=== PATIENT | male | born 1960 | race Caucasian/White ===

== ENCOUNTER 2022-05-03 09:01 | Outpatient (CLI) | payer OTHER, SELFPAY ==
--- NOTE | 2022-05-03 09:28 | XR_ITS ---
WS: [id number] Exam: XR knee LT 3V* [id number] Date/Time of Exam: 05/03/2022 9:45 AM Reason For Exam: L KNEE PAIN No acute fracture or dislocation. Moderately advanced degenerative thinning of the medial joint angela rtment. Minimal effusion in the suprapatellar bursa. Spurring of the posterior patella. XR/XR knee LT 3V* [id number] IMPRESSION: 1. Moderate degenerative narrowing of the medial joint compartment. Minimal donald nt effusion. 2. No fracture.
== END 2022-05-03 09:02 | disposition home or self-care (01) ==
LOC: RAD 09:05
PROVIDERS: PCP Nurse Practitioner Family; Visit Provider Family Medicine
DX: M25.562 Pain in left knee (principal); M25.462 Effusion, left knee
CPT/HCPCS: 73562

== ENCOUNTER 2022-05-19 16:18 | Outpatient (CLI) | payer OTHER, SELFPAY ==
--- NOTE | 2022-05-19 | CT_ITS ---
WS: [id number] LDCT LUNG CANCER SCREENING HISTORY: NICOTINE DEPENDENCE TECHNIQUE: Axial imaging performed from the apices to 1 cm below the costophrenic angles. Coronal and sagittal reformats are submitted with axial MIP series. All CT scans at [facility] use at least one of these dose optimization techniques: automated exposure control; mA and/or kV adjustment per patient size (includes targeted exams where dose is matched to clinical indication); or iterativ e reconstruction. DLP: 76.77 mGy.cm DIvol: Mean CTDIvol: 1.60 (mGy) COMPARISON: None available. Diagnostic quality: Satisfactory Lung Nodules: 7 mm noncalcified parenchymal nodule in the RIGHT middle lobe. No calcification. Additi onal areas of subsegmental atelectasis with adjacent groundglass attenuation bilaterally in the lower lobes and in the lingula. Lungs: Mild pulmonary hyperexpansion. Mild bronchial wall thickening bilaterally the lower lobes. Heart: Normal size heart. No effusion. Mild scattered coronary artery calcifications. Other findings: No suspicious lymph nodes. Small axillary, hilar mediastinal lymph nodes. Some of the se lymph nodes contain calcification. Seen only on the axial imaging through the upper abdomen is a b ulbous appearance of the pancreatic tail. No adjacent inflammation. Similar density to the adjacent n ormal pancreas. CT/CT lung screening [id number] IMPRESSION: LUNG-RADS: 4A-Probably Suspicious FOLLOW UP: 3 Month LDCT OTHER FINDINGS (S MODIFIER): Recommend CT abdomen and pelvis with IV and oral c ontrast to evaluate for possible mass involving the pancreatic tail. Dual phase (arterial and portal venous) imaging through the pancreas recommended.
== END 2022-05-19 16:19 | disposition home or self-care (01) ==
PROVIDERS: PCP Nurse Practitioner Family; Visit Provider Family Medicine
DX: Z12.2 Encounter for screening for malignant neoplasm of respiratory organs (principal); F17.210 Nicotine dependence, cigarettes, uncomplicated
CPT/HCPCS: 71271

== ENCOUNTER 2022-06-14 11:12 | Outpatient (CLI) | payer OTHER, SELFPAY ==
--- NOTE | 2022-06-14 11:27 | CT_ITS ---
WS: [id number] CT ABDOMEN AND PELVIS WITH AND WITHOUT CONTRAST HISTORY: ABNORMAL RADIOGRAPHIC IMAGING OF PANCREAS TECHNIQUE: Unenhanced 5 mm axial imaging first performed through the abdomen. Post contrast imaging t hrough the abdomen and pelvis. Oral contrast has not been provided. Sagittal and coronal reformats a re submitted. All CT scans at [facility] use at least one of these dose optimization techniqu es: automated exposure control; mA and/or kV adjustment per patient size (includes targeted exams whe re dose is matched to clinical indication); or iterative reconstruction. CONTRAST: Omnipaque 350; 95 mL IV. DLP: 3608.79 mGy.cm COMPARISON: 05/22/2016, 05/19/2022 Atelectatic and dependent changes at the lung bases. No pneumonia. Heart is normal size. No hiatal he rnia. Normal size liver with hepatic steatosis. Blush-like area of enhancement in the LEFT lobe measures 2. 3 cm consistent with a hemangioma. Normal portal vein. Normal gallbladder and spleen. Normal adrenal glands. Kidneys are normally enhancing. Bilateral lower pole low-attenuation masses. The largest in t he LEFT lower pole measures 3.6 cm. There is a smaller cortical hypodensity at lower pole RIGHT kidne y. Both of these were present in 2016. No solid renal mass or obstruction. Pancreas: There is a normal appearance of the pancreas. The bulbous appearance of the pancreatic tail on the prior recent examination corresponds to a mildly redundant pancreas. Similar enhancement thro ughout. There is no evidence for a pancreatic tail mass or neoplasm. Normal pancreatic duct. Mild atherosclerosis aorta. No GI tract abnormality. No ascites or adenopathy. Patent LEFT inguinal c anal contains fat only. Minimally distended urinary bladder. Mild degenerative spondylitic changes in the lumbar spine. CT/CT abdomen pelvis wo/w [id number] IMPRESSION: 1. Normal CT pancreas. Previously described fullness in the pancreatic tail wa s redundant normal pancreatic tissue. 2. Bilateral lower pole stable renal cysts. 3. LEFT hepatic lobe hemangioma. 4. Hepatic steatosis. 5. Mild atherosclerosis aorta.
[2022-06-14] MEDS: iohexol 350 mg/mL 100 mL Btl IV (11:49)
== END 2022-06-14 11:13 | disposition home or self-care (01) ==
PROVIDERS: PCP Nurse Practitioner Family; Visit Provider Family Medicine
DX: R93.89 Abnormal findings on diagnostic imaging of other specified body structures (principal); Q61.02 Congenital multiple renal cysts; N28.89 Other specified disorders of kidney and ureter; D18.09 Hemangioma of other sites; I70.0 Atherosclerosis of aorta
CPT/HCPCS: 74178; Q9967

== ENCOUNTER 2022-07-25 16:28 | Outpatient (CLI) | payer OTHER, SELFPAY ==
--- NOTE | 2022-07-25 16:36 | CT_ITS ---
WS: [id number] CT CHEST WITHOUT INTRAVENOUS CONTRAST HISTORY: SOLITARY NODULE OF LUNG TECHNIQUE: Contiguous 5 mm axial imaging performed on the thorax. Coronal and sagittal reformats are submitted. All CT scans at [facility] use at least one of these dose optimization techniques: automated exposure control; mA and/or kV adjustment per patient size (includes targeted exams where dose is matched to clinical indication); or iterative reconstruction. CONTRAST: None DLP: 705.49 mGy.cm COMPARISON: 07/19/2014 Lungs and central airway: No increase in size of the noncalcified RIGHT middle lobe 7 mm pulmonary no dule. There are additional scattered benign granulomata. Additional dependent changes at the lung bas es and lingula. No area of dense consolidation. Pleura: Normal. No pleural effusion. Heart and pericardium: Normal size heart with no pericardial effusion. Mediastinum and jm: No enlarged lymph nodes. Vessels: Atherosclerosis aorta is mild. Pulmonary artery size is very mildly prominent. Chest wall and lower neck: No soft tissue masses. Upper abdomen: Diffuse hepatic steatosis. No adrenal mass. Osseous structures: Stable lytic area with cortical thickening involving the inferior LEFT ribs. Xiomara lar to the prior study. May be related to fracture. CT/CT chest wo con [id number] IMPRESSION: 1. No increase in size of the 7 mm noncalcified RIGHT middle lobe nodule. Sanju mmend follow-up chest CT in 6 months to document continued stability. 2. Atherosclerosis aorta. 3. Hepatic steatosis.
== END 2022-07-25 16:29 | disposition home or self-care (01) ==
PROVIDERS: PCP Nurse Practitioner Family; Visit Provider Nurse Practitioner Family
DX: R91.1 Solitary pulmonary nodule (principal); I70.0 Atherosclerosis of aorta; K76.0 Fatty (change of) liver, not elsewhere classified
CPT/HCPCS: 71250

== ENCOUNTER 2023-05-15 16:51 | Outpatient (CLI) | payer SELFPAY ==
--- NOTE | 2023-05-15 17:08 | XRR_ITS ---
PROCEDURE INFORMATION: Exam: XR Chest Exam date and time: 05/15/2023 5:10 PM Age: 63 years old Clinical indication: Wheezing TECHNIQUE: Imaging protocol: Radiologic exam of the chest. Views: 2 views. COMPARISON: CT chest con [id number] 07/25/2022 4:43 PM FINDINGS: Lungs: Unremarkable. No consolidation. Pleural spaces: Unremarkable. No pleural effusion. No pneumothorax. Heart/Mediastinum: Unremarkable. No cardiomegaly. Bones/joints: Unremarkable. XR/XR chest 2V* [id number] IMPRESSION: No acute findings.
== END 2023-05-15 16:52 | disposition home or self-care (01) ==
LOC: RAD 16:57
PROVIDERS: PCP Nurse Practitioner Family; Visit Provider Nurse Practitioner Family
DX: R06.2 Wheezing (principal); R05.1 Acute cough
CPT/HCPCS: 71046

== ENCOUNTER 2023-09-27 16:47 | Outpatient (CLI) | payer OTHER, SELFPAY ==
--- NOTE | 2023-09-27 16:50 | CT_ITS ---
WS: [email or web address] LDCT LUNG CANCER SCREENING TECHNIQUE: Noncontrast CT of the chest with coronal and sagittal reformatted images. CLINICAL INFORMATION: NICOTINE DEPENDENCE, CIGARETTES COMPARISON: CT 07/27 and 05/27 DLP: 97.49 mGy.cm DIvol: Mean CTDIvol: 2.30 (mGy) All CT scans at [facility] use at least one of these dose optimization techniques: automat ed exposure control; mA and/or kV adjustment per patient size (includes targeted exams where dose is matched to clinical indication); or iterative reconstruction. FINDINGS: RIGHT middle lobe nodule measures 7.8 mm today and appears slightly more prominent compared to 2021. This measures slightly larger today. Recommend additional 3-month follow-up or further evaluati on with PET/CT No new suspicious pulmonary parenchymal normalities.. Normal caliber thoracic aorta. Aortic calcification. Coronary calcification. No mediastinal or hilar lymphadenopathy. Prominent RIGHT axillary lymph node unchanged likely reactive. Normal LEFT axillary lymph nodes. Normal GE junction. Adrenal glands are normal. Mild thoracic curve. IMPRESSION:Recommend additional 3-month follow-up or further evaluation with PET/CT CT/CT lung screening [id number] LUNG-RADS: 4A-Probably Suspicious FOLLOW UP: 3 Month LDCT
== END 2023-09-27 16:48 | disposition home or self-care (01) ==
LOC: RAD 16:48
PROVIDERS: PCP Nurse Practitioner Family; Visit Provider Nurse Practitioner Family
DX: Z12.2 Encounter for screening for malignant neoplasm of respiratory organs (principal); R91.1 Solitary pulmonary nodule; F17.210 Nicotine dependence, cigarettes, uncomplicated
CPT/HCPCS: 71271

== ENCOUNTER 2023-10-11 06:00 | Outpatient (CLI) | payer OTHER, SELFPAY | END 2023-10-11 23:59 | disposition home or self-care (01) | LOC: SPT 10-16 09:40 | PROVIDERS: Visit Provider Physician Assistant | DX: Z46.89 Encounter for fitting and adjustment of other specified devices (principal); M17.12 Unilateral primary osteoarthritis, left knee | CPT/HCPCS: 97760; L1851 ==

== ENCOUNTER → 2023-10-11 14:22 | Outpatient (BNVA) | payer OTHER, SELFPAY | PROVIDERS: PCP Nurse Practitioner Family; Referring Provider Nurse Practitioner Family; Visit Provider Physician Assistant | DX: M17.12 Unilateral primary osteoarthritis, left knee | CPT/HCPCS: 73560; 73565 ==

== ENCOUNTER 2023-10-29 10:15 | Outpatient (CLI) | payer OTHER, SELFPAY ==
--- NOTE | 2023-10-29 10:19 | CT_ITS ---
WS: [email or web address] Exam: CT chest w con* [id number] Date/Time of Exam: 10/29/2023 10:21 AM Reason For Exam: SOLITARY NODULE OF LUNG DLP: 507.[address] scans at [facility] use at least one of these dose optimization techniques: automated e xposure control; mA and/or kV adjustment per patient size (includes targeted exams where dose is matc hed to clinical indication); or iterative reconstruction. Comparison 05/19/2022 and 05/15/2023. 7.5 mm soft tissue nodule noted in the RIGHT middle lobe is stable since previous exams. No other nod ules are identified. Several calcified granulomas noted. The airway is patent. The thoracic aorta is normal in caliber. No pleural or pericardial effusion seen. No significant lymphadenopathy in the yuly st. CT sections of the upper abdomen are unremarkable. No destructive bone lesions. IMPRESSION: 1. 7.5 mm soft tissue nodule in the RIGHT middle lobe stable when compared to previous exams. 2. No other pulmonary nodules identified. No lymphadenopathy in the chest. Recommendations: Continue yearly lung screening CT.
[2023-10-29 11:05] LABS: Blood Urea Nitrogen 14 mg/dL (8-23); Glomerular Filtration Rate 85.8 mL/min (90-130)
[2023-10-29] MEDS: iohexol 350 mg/mL 500 mL Btl (per mL) IV (11:16)
== END 2023-10-29 10:16 | disposition home or self-care (01) ==
LOC: RAD 10:16
PROVIDERS: PCP Nurse Practitioner Family; Visit Provider Nurse Practitioner Family
DX: R91.1 Solitary pulmonary nodule (principal)
CPT/HCPCS: 71260; 82565; 84520; Q9967

== ENCOUNTER 2024-09-30 12:05 | Inpatient (IN) | payer OTHER, SELFPAY ==
[2024-09-30] VITALS (12 sets, daily range): BP systolic 129–150; BP diastolic 68–91; PULSE 54–105; RESP 11–25; TEMP 36.3–36.6; O2SAT 88–94; BMI 34.7
--- NOTE | 2024-09-30 12:18 | ECG_ITS ---
[facility] [place] [place] [facility] Date: 2024-09-30 Pat Name: Jerrod Riley Department: Room: Gender: Male Digital Editor: : 1960 Requested By: Blas Myrick Order Number: [id number] Naomie MD: LINA BIRCH Measurements Intervals [place] Rate: 59 P: 54 HI: 144 QRS: 49 QRSD: 94 T: 47 QT: 435 QTc: 433 Interpretive Statements SINUS BRADYCARDIA No previous ECG available for comparison Electronically Signed On 09-30-2024 23:33:13 DIRECTOR LONG TERM CARE by LINA BIRCH [id number]
--- NOTE | 2024-09-30 12:25 | XRR_ITS ---
PROCEDURE INFORMATION: Exam: XR Chest Exam date and time: 09/30/2024 12:49 PM Age: 64 years old Clinical indication: Cough and dyspnea; Additional info: Dyspnea/cough TECHNIQUE: Imaging protocol: Radiologic exam of the chest. Views: 1 view. COMPARISON: CT chest w con* [id number] 10/29/2023 11:08 AM FINDINGS: Lungs: There is coarse reticular opacity in the lateral left lung base. The right lung is clear. Pleural spaces: There is no pleural effusion or pneumothorax. Heart/Mediastinum: There is mild enlargement of the cardiac silhouette. Bones/joints: Bones are unremarkable. XR/XR chest 1V portable [id number] IMPRESSION: Probable scarring/atelectasis in the left lung base.
--- NOTE | 2024-09-30 12:34 | ED_ITS ---
HPI - SOB/Dyspnea 2 General: Chief Complaint: Shortness of Breath/Dyspnea Stated Complaint: SOB Time Seen by Provider: 09/30/24 12:11 History of Present Illness: HPI Narrative: 64-[facility] of not being able to breathe well. He states he is excessively short of breath with any activity and is very orthopneic. This been going on for a year he will get some chest discomfort if he lays down flat but not other times. He is chronically on oxygen for COPD usually at 3 L/min. He denies any recent fever sweats chills or productive cough Associated symptoms: Reports chest congestion, chest pain, orthopnea and palpitations; Deny abdominal pain or fever(s) Related Data Home Medications ?Medication ?Instructions ?Recorded ?Confirmed amlodipine 10 mg tablet 10 mg PO DAILY 09/30/2409/07 metoprolol succinate 100 mg 100 mg PO DAILY 09/30/24 0 09/30/24 tablet,extended release 24 hr tamsulosin 0.4 mg capsule 0.4 mg PO DAILY 09/30/24 Allergies Allergy/AdvReac Type Severity Reaction Status Date / Time No Known Allergies Allergy Unverified 07/25/24 10:18 Review of Systems 2 Const: Denies: fever(s) or chills Card: Reports: chest pain, palpitations, dyspnea on exertion and orthopnea Resp: Reports: dyspnea, non-productive cough, wheezing and chest congestion GI: Denies: abdominal pain : Denies: dysuria, urinary frequency or urinary urgency Musc: Denies: neck pain or back pain Skin/Breast: Denies: rash PFSH ED 2 PFSH: Medical History COPD (chronic obstructive pulmonary disease) Social History Smoking and tobacco/nicotine status: former use of tobacco/nicotine Alcohol intake: current Alcohol intake frequency: holidays/special occasions only Physical Exam 2 Const: GENERAL APPEARANCE: cooperative ORIENTATION/CONSCIOUSNESS: Yes awake, Yes oriented to person, Yes oriented to place and Yes oriented to time HENMT: COMMON NORMALS: normocephalic, atraumatic and hearing grossly normal bilaterally HEAD & SCALP: normocephalic and atraumatic Resp: AUSCULTATION: wheezes Cardio: COMMON NORMALS: regular rate, regular rhythm and No murmurs present (Cardio) RATE: regular rate RHYTHM: regular rhythm GI: COMMON NORMALS: Soft to palpation and No hepatosplenomegaly present A USCULTATION: Yes normoactive bowel sounds PALPATION: Yes Soft to palpation, No Tenderness to palpation present (GI), No Guarding due to palpation present (GI) and Yes No hepatosplenomegaly present Extremity: COMMON NORMALS: normal to inspection, capillary refill normal, no clubbing, cyanosis or edema, no calf tenderness and no pedal edema Neuro: SENSORIUM/ORIENTATION: Yes oriented to person, Yes oriented to place and Yes oriented to time Skin: COMMON NORMALS: no rashes or lesions noted GENERAL SKIN EXAM: no rashes or lesions noted Course 2 Vital Signs: Vital signs: Vital Signs Temperature 97.9 F 10/01/24 04:00 Pulse Rate 89 10/01/24 04:00 Respiratory Rate 20 H 10/01/24 04:00 Blood Pressure 128/67 10/01/24 04:00 Pulse Oximetry 92 10/01/24 04:00 Oxygen Delivery Me thod Nasal Cannula 10/01/24 04:00 Oxygen Flow Rate 2 10/01/24 04:00 MDM - SOB/Dyspnea Medical Decision Making Chest x-ray shows hyperinflation and scarring in the lungs. Patient has well compensated chronic hypercapnia. We looked at getting him discharged home and starting him on nebulizers as well as anticholinergic and inhaled corticosteroid long-acting beta agonist however when we did his home eval he is requiring 4 L with ambulation. Given his oxygen deficit instead we recommend admission for further evaluation initiation of treatment for COPD. He has no chest pain at this time his oxygen deficit is correctable is not particular tachycardic I do not believe he has a pulmonary embolism Medical Records I reviewed the patient's medical records. Lab Data I reviewed the patient's lab results. 09/30/24 12:45 10/01/24 04:51 Labs/Radiology: Radiology Impressions Chest X-Ray 09/30/24 12:25 IMPRESSION: Probable scarring/atelectasis in the left lung base. Chest CT 09/30/24 16:47 IMPRESSION: 1. Bilateral lower lung opacities most likely represents scarring and atelectasis. The findings are similar in distribution but more conspicuous than on 10/29/2023. 2. Mild centrilobular emphysema. 3. Stable right lung nodules measuring up to 8 mm since 10/29/2023. For patients at high risk (history of smoking or of other known risk factors including centrilobular emphysema), recommend CT Chest 1 year from now. (Reference: Susan) 4. Hepatic steatosis. COMMENTS: The presence of pulmonary emphysema on CT is an independent risk factor for lung cancer. In the absence of a history or active diagnosis of lung cancer, it is recommended that this patient with emphysema be evaluated for enrollment in a low dose CT lung cancer screening program. REFERENCES: Susan Alva, et al. Guidelines for Management of Incidental Pulmonary Nodules Detected on CT Images: From the Fleischner Society 2017. Radiology. 2017;284(1):228-243. Laboratory Results WBC 8.47 10^3/uL (3.29-11.43) 09/30/24 12:45 RBC 5.32 10^6/uL (3.85-5.65) 09/30/24 12:45 Hgb 16.30 g/dL (11.27-16.99) 09/30/24 12:45 Hct 49.7 % (37-53) 09/30/24 12:45 MCV 93.4 fl (82-101) 09/30/24 12:45 MCH 30.6 pg (27-33) 09/30/24 12:45 MCHC 32.8 g/dL (30-55) 09/30/24 12:45 RDW 14.2 % (12.1-15.1) 09/30/24 12:45 Plt Count 227 10^3/cmm (157-399) 09/30/24 12:45 MPV 9.8 fL (7.4-10.4) 09/30/24 12:45 Neut % (Auto) 58.4 % 09/30/24 12:45 Lymph % (Auto) 29.3 % 09/30/24 12:45 [place] % (Auto) 7.6 % 09/30/24 12:45 Eos % (Auto) 3.8 % 09/30/24 12:45 Baso % (Auto) 0.5 % 09/30/24 12:45 Neut # (Auto) 4.96 10^3/uL (1.8-7.7) 09/30/24 12:45 Lymph # (Auto) 2.5 10^3/uL (0.8-4.8) 09/30/24 12:45 [place] # (Auto) 0.6 10^3/uL (0.2-0.9) 09/30/24 12:45 Eos # (Auto) 0.3 10^3/uL (0.0-0.8) 09/30/24 12:45 Baso # (Auto) 0.0 10^3/uL (0.0-0.1) 09/30/24 12:45 Nucleated RBC % (auto) 0 % 09/30/24 12:45 Nucleated RBCs # 0.0 /100WBC 09/30/24 12:45 Specimen Type Arterial 09/30/24 12:50 Sample Site Radial, left 09/30/24 12:50 ABG pH 7.35 (7.35-7.45) 09/30/24 12:50 ABG pCO2 60.8 mmHg (35-45) H* 09/30/24 12:50 ABG pO2 71.6 mmHg (80.0-100.0) L 09/30/24 12:50 ABG HCO3 33.4 mmol/L (22-26) H 09/30/24 12:50 ABG O2 Saturation 94.6 09/30/24 12:50 ABG Base Excess 5.4 mmol/L (-2.0-2.0) H 09/30/24 12:50 Silverio Test Pos 09/30/24 12:50 A-a O2 Gradient 0.5 mmHg (5-10) L 09/30/24 12:50 Hematocrit 50.1 % (42-52) 09/30/24 12:50 Hgb O2 Saturation 91.0 % (95-100) L 09/30/24 12:50 Carboxyhemoglobin 2.9 %THgb (0.4-20.1) 09/30/24 12:50 Methemoglobin 0.9 % (0.4-1.5) 09/30/24 12:50 Total Hemoglobin 16.3 g/dL (14-18) 09/30/24 12:50 Sodium 142.0 mmol/L (131-143) 09/30/24 12:50 Potassium 4.1 mmol/L (3.5-5.0) 09/30/24 12:50 Glucose 103.0 mg/dL (70-115) 09/30/24 12:50 Ionized Calcium 1.2 mmol/L (1.1-1.4) 09/30/24 12:50 O2 Delivery Device Nc 09/30/24 12:50 O2 Liters/Min 2.0 % 09/30/24 12:50 Hand Pleater ID [place] 09/30/24 12:50 Sodium 141 mmol/L (136-145) 09/30/24 12:45 Potassium 4.4 mmol/L (3.5-5.1) 09/30/24 12:45 Chloride 101 mmol/L (98-107) 09/30/24 12:45 Carbon Dioxide 27 mmol/L (22-29) 09/30/24 12:45 Anion Gap 17.4 (5-19) 09/30/24 12:45 BUN 15 mg/dL (8-23) 09/30/24 12:45 Creatinine 0.6 mg/dL (0.7-1.2) L 09/30/24 12:45 GFR Calculation 136.5 mL/min (90-130) H 09/30/24 12:45 Glucose 102 mg/dL (65-115) 09/30/24 12:45 Estimat Average Glucose 114 09/30/24 12:45 Hemoglobin A1c 5.6 % (4.0-6.0) 09/30/24 12:45 Calculated Osmolality 293 mOsm/kg (285-295) 09/30/24 12:45 Calcium 9.1 mg/dL (8.5-10.5) 09/30/24 12:45 Total Bilirubin 0.5 mg/dL (0.15-1.2) 09/30/24 12:45 AST 15 U/L (0-40) 09/30/24 12:45 ALT 26 U/L (0-41) 09/30/24 12:45 Alkaline Phosphatase 105 U/L (40-130) 09/30/24 12:45 Troponin T Baseline 10 ng/L (0-15) 09/30/24 12:45 Troponin T 120 Minute 8.26 ng/L (0-15) 09/30/24 15:57 Delta Troponin T -1.74 ABS# (0-10) L 09/30/24 15:57 C-Reactive Protein 7.7 mg/L (0.0-4.9) H 09/30/24 15:57 NT-Pro-B Natriuret Pep 209 pg/mL (0-125) H 09/30/24 12:45 Total Protein 7.0 g/dL (6.6-8.7) 09/30/24 12:45 Albumin 4.0 g/dL (3.5-5.2) 09/30/24 12:45 Globulin 3.0 g/dL (1.3-4.6) 09/30/24 12:45 Triglycerides 224 mg/dL (0-150) H 09/30/24 12:45 Cholesterol 142 mg/dL (0-200) 09/30/24 12:45 LDL Cholesterol, Calc 74 mg/dL (50-129) 09/30/24 12:45 HDL Cholesterol 23 mg/dL (60-100) L 09/30/24 12:45 LDL/HDL Ratio 3.22 RATIO (0.00-3.22) 09/30/24 12:45 Cholesterol/HDL Ratio 6.17 mg/dL (1.0-5.00) H 09/30/24 12:45 Procalcitonin 0.07 ng/mL (0-0.5) 09/30/24 15:57 TSH 1.73 uIU/mL (0.27-4.20) 09/30/24 12:45 Influenza A (PCR) Negative (Negative) 09/30/24 12:28 Influenza Type B (PCR) Negative (Negative) 09/30/24 12:28 RSV (PCR) Negative (Negative) 09/30/24 12:28 SARS-CoV-2 (PCR) Negative (Negative) 09/30/24 12:28 All radiology interpretation(s) finalized by discharge Discharge Plan Discharge Patient Disposition: Admitted As Inpatient Admit Provider: Андрей Hamilton Clinical Impression: Acute exacerbation of chronic obstructive airways disease Condition: Stable Coding Level of Care Code ED Pathology Secretary/Transcriptionist for Carolann Romano
[2024-09-30] MEDS: dexamethasone 10 mg/mL INJ IM (12:56)
[2024-09-30 13:01] LABS: ABG PCO2 60.8 mmHg (35-45); ABG PH Result 7.35 (7.35-7.45); Alveolar-Arterial Oxygen Gradi 0.5 mmHg (5-10); Arterial Blood Gas Hematocrit 50.1 % (42-52); Base Excess ABG 5.4 mmol/L (-2.0-2.0); Blood Gas Allen Test Pos; Blood Gas Operator Identificat WALCI; Blood Gas Sample Site Radial, left; Blood Gas Sample Type Arterial; Carboxyhemoglobin 2.9 %THgb (0.4-20.1); HCO3 ABG 33.4 mmol/L (22-26); Ionized Calcium Level - ABG 1.2 mmol/L (1.1-1.4); Methemoglobin 0.9 % (0.4-1.5); Oxygen Device NC; Oxygen Saturation ABG 94.6; PO2 ABG 71.6 mmHg (80.0-100.0); Potassium Level - ABG 4.1 mmol/L (3.5-5.0); Total Hemoglobin 16.3 g/dL (14-18)
[2024-09-30] MEDS: ipratropium-albuterol 3 mL Neb INHALATION ×2 (13:05→22:10)
[2024-09-30 13:16] LABS: Troponin(5th) Baseline 10 ng/L (0-15)
[2024-09-30 13:25] LABS: Influenza A NEGATIVE (Negative); Influenza B NEGATIVE (Negative); Respiratory Syncytial Virus Ce NEGATIVE (Negative); SARS-CoV-2 PCR NEGATIVE (Negative)
[2024-09-30 13:29] LABS: NT Pro B Type Natriuretic Pept 209 pg/mL (0-125); Procalcitonin 0.08 ng/mL (0-0.5)
[2024-09-30 13:32] LABS: Basophils % 0.5 %; Eosinophils # 0.3 10^3/uL (0.0-0.8); Eosinophils % 3.8 %; Hematocrit 49.7 % (37-53); Lymphocytes # 2.5 10^3/uL (0.8-4.8); Lymphocytes % 29.3 %; Mean Corpuscular HGB Conc 32.8 g/dL (30-55); Mean Corpuscular Hemoglobin 30.6 pg (27-33); Mean Corpuscular Volume 93.4 fl (82-101); Mean Platelet Volume 9.8 fL (7.4-10.4); Monocytes # 0.6 10^3/uL (0.2-0.9); Monocytes % 7.6 %; Neutrophils # 4.96 10^3/uL (1.8-7.7); Neutrophils % 58.4 %; Nucleated Red Blood Cells % 0 %; Platelet Count 227 10^3/cmm (157-399); Red Blood Count 5.32 10^6/uL (3.85-5.65); Red Cell Distribution Width 14.2 % (12.1-15.1); White Blood Count 8.47 10^3/uL (3.29-11.43)
[2024-09-30 13:40] LABS: Alanine Aminotransferase 26 U/L (0-41); Alkaline Phosphatase 105 U/L (40-130); Anion Gap 17.4 (5-19); Aspartate Amino Transferase 15 U/L (0-40); Blood Urea Nitrogen 15 mg/dL (8-23); Calcium 9.1 mg/dL (8.5-10.5); Carbon Dioxide 27 mmol/L (22-29); Chloride 101 mmol/L (98-107); Creatinine Clr Calc Pharmacy 153.5762; Glomerular Filtration Rate 136.5 mL/min (90-130); Glucose 102 mg/dL (65-115); Osmolality Calculated 293 mOsm/kg (285-295); Potassium 4.4 mmol/L (3.5-5.1); Sodium 141 mmol/L (136-145); Total Bilirubin 0.5 mg/dL (0.15-1.2)
--- NOTE | 2024-09-30 14:25 | ECG_ITS ---
[facility]: 2024[facility]30 Pat Name: Jerrod Riley Department: Room: Gender: Male Bowl Topper: : 1960 Requested By: Blas Myrick Order Number: [id number] Reading MD: LINA BIRCH Measurements Intervals [place] Rate: 59 P: 44 [place]: 127 QRS: 48 QRSD: 98 T: 65 QT: 437 QTc: 435 Interpretive Statements SINUS BRADYCARDIA MODERATE ST DEPRESSION [0.05+ mV ST DEPRESSION] Compared to ECG 09/30/2024 12:13:18 ST (T wave) deviation now present Electronically Signed On 09-30-2024 23:45:27 TIRE FABRIC INSPECTOR by LINA BIRCH [email or web address] [id number]
[2024-09-30 16:25] LABS: Troponin 5 2HR 8.26 ng/L (0-15)
[2024-09-30 16:27] LABS: Troponin 5 2HR Delta -1.74 ABS# (0-10)
--- NOTE | 2024-09-30 16:47 | CTR_ITS ---
PROCEDURE INFORMATION: Exam: CT Chest Without Contrast; Diagnostic Exam date and time: 09/30/2024 5:04 PM Age: 64 years old Clinical indication: Shortness of breath; Additional info: SOB TECHNIQUE: Imaging protocol: Diagnostic computed tomography of the chest without contrast. Radiation optimization: All CT scans at this facility use at least one of these dose optimization techniques: automated exposure control; mA and/or kV adjustment per patient size (includes targeted exams where dose is matched to clinical indication); or iterative reconstruction. COMPARISON: CT chest w con* [id number] 10/29/2023 11:08 AM RADIATION DOSE METRICS: Total DLP (mGy-cm): 698.4 FINDINGS: Lungs: There is mild upper lung predominant centrilobular emphysema. There is a noncalcified pulmonary nodule in the right upper lobe visible on series 5, image 18 measuring 6 mm. There is a calcified granuloma in the right lower lobe. There is a noncalcified pulmonary nodule in the right middle lobe visible on series 5, image 35 measuring 8 mm. There is coarse reticular and platelike opacity associated with volume loss in the inferior lower lobes, right middle lobe and lingula. Pleural spaces: There is no pleural effusion or pneumothorax. Heart: Heart size is normal. There is no pericardial effusion. Coronary arteries: There is mild coronary artery calcification. Lymph nodes: There is no mediastinal or hilar lymphadenopathy. There are multiple small calcified mediastinal and bilateral hilar lymph nodes suggesting healed granulomas. Vasculature: There is moderate aortic atherosclerotic disease. Liver: There is diffuse low-attenuation of the liver relative to the spleen consistent with fatty infiltration. Bones/joints: Bones are unremarkable. Soft tissues: The extrathoracic soft tissues are unremarkable. CT/CT chest con [id number] IMPRESSION: 1. Bilateral lower lung opacities most likely represents scarring and atelectasis. The findings are similar in distribution but more conspicuous than on 10/29/2023. 2. Mild centrilobular emphysema. 3. Stable right lung nodules measuring up to 8 mm since 10/29/2023. For patients at high risk (history of smoking or of other known risk factors including centrilobular emphysema), recommend CT Chest 1 year from now. (Reference: Susan) 4. Hepatic steatosis. COMMENTS: The presence of pulmonary emphysema on CT is an independent risk factor for lung cancer. In the absence of a history or active diagnosis of lung cancer, it is recommended that this patient with emphysema be evaluated for enrollment in a low dose CT lung cancer screening program. REFERENCES: Susan Alva, et al. Guidelines for Management of Incidental Pulmonary Nodules Detected on CT Images: From the Fleischner Society 2017. Radiology. 2017;284(1):228-243.
--- NOTE | 2024-09-30 16:48 | P.HP_ITS ---
Providers/Chief Complaint 2 Primary Care Provider: ELIJAH Blanco Chief Complaint: SOB History of Present Illness Jerrod Riley is a 64 year old male with a past medical history of smoking, hyperlipidemia, hypertension who presents [facility] for complaints of shortness of breath, cough. Patient tells me that he purchased a home oxygen concentrator from an auction, and that supplies his oxygen as he was getting oxygen from home supply company home however the cost was high, so now he gets his home oxygen from an oxygen concentrator, he tells me that recently has been experiencing increased shortness of breath, increased shortness of breath with exertion with a cough no fevers, chills, no chest pain, no lower extremity edema no orthopnea, no paroxysmal nocturnal dyspnea Review of Systems 2 Const: Denies: fever(s) Card: Denies: chest pain Resp: Reports: dyspnea Medications/Allergies Home Medications ?Medication ?Instructions ?Recorded ?Confirmed ?Last Taken ?Type amlodipine 10 mg tablet 10 mg PO DAILY 09/30/2409/07 Unknown History metoprolol succinate 100 mg 100 mg PO DAILY 09/30/24 0 09/30/24 Unknown History tablet,extended release 24 hr tamsulosin 0.4 mg capsule 0.4 mg PO DAILY 09/30/24 Unknown History Allergies Allergy/AdvReac Type Severity Reaction Status Date / Time No Known Allergies Allergy Unverified 07/25/24 10:18 PFSH Acute 2 PFSH: Medical History COPD (chronic obstructive pulmonary disease) Social History Smoking and tobacco/nicotine status: former use of tobacco/nicotine Alcohol intake: current Alcohol intake frequency: holidays/special occasions only Vitals/I&O/Wt Last Vital Signs Temp 97.4 F L 09/30/24 12:08 Pulse 67 09/30/24 16:21 Resp 25 H 09/30/24 16:21 BP 139/75 09/30/24 16:21 Pulse Ox 92 09/30/24 16:21 O2 Del Method Nasal Cannula 09/30/24 16:21 O2 Flow Rate 3 09/30/24 16:21 09/30/24 09/30/24 09/30/24 06:59 14:59 22:59 Intake Total 0 / 0 Balance 0 / 0 Weight last 48 hrs Weight 106.594 kg Physical Exam 2 Const: COMMON NORMALS: no acute distress and patient oriented x3 HENMT: COMMON NORMALS: normocephalic HEAD & SCALP: normocephalic Eye: COMMON NORMALS: Equal, round and reactive pupils present and EOMs intact bilaterally Resp: AUSCULTATION: wheezes Cardio: COMMON NORMALS: no JVD, regular rate, regular rhythm, S1 normal heart sound present and S2 normal heart sound present RATE: regular rate RHYTHM: regular rhythm HEART SOUNDS: S1 normal heart sound present and S2 normal heart sound present GI: COMMON NORMALS: Normal to inspection, nondistended, normoactive bowel sounds present, Soft to palpation and non-tender Extremity: COMMON NORMALS: no pedal edema Neuro: COMMON NORMALS: patient oriented x3 and CN's II-XII intact bilaterally Psych: COMMON NORMALS: mental status grossly normal Data 09/30/24 12:45 09/30/24 12:45 A&P Assessment and plan (1) COPD (chronic obstructive pulmonary disease): (2) Acute exacerbation of chronic obstructive airways disease: Plan Acute COPD exacerbation -CT chest -DuoNeb -Budesonide -Solu-Medrol 40 mg IV every 8 hours -Oxygen therapy -Full code -Lovenox DVT prophylaxis PDMP PDMP Reviewed: Not Reviewed Attestations 2 Medical Necessity Statement*: Patient requires hospitalization, inpatient, greater than 2 midnights for COPD exacerbation Diagnoses COPD (chronic obstructive pulmonary disease) J44.9 Acute exacerbation of chronic obstructive airways disease J44.1
[2024-09-30 17:31] LABS: C Reactive Protein 7.7 mg/L (0.0-4.9)
[2024-09-30 17:37] LABS: Procalcitonin 0.07 ng/mL (0-0.5)
--- NOTE | 2024-09-30 18:25 | ECG_ITS ---
[facility] Test Date: 2024-09-30 Pat Name: Jerrod Riley Department: Room: 277 Gender: Male Dewaxer: : 1960 Requested By: Blas Myrick Order Number: [id number] Naomie MD: LINA BIRCH Measurements Intervals [place] Rate: 70 P: 59 WI: 150 QRS: 36 QRSD: 102 T: 45 QT: 418 QTc: 452 Interpretive Statements SINUS RHYTHM Compared to ECG 09/30/2024 14:09:57 Sinus bradycardia no longer present ST (T wave) deviation no longer present Electronically Signed On 09-30-2024 23:45:05 PATIENT FINANCIAL REPRESENTATIVE by LINA BIRCH [email or web address]
[2024-09-30 18:44] LABS: Chol HDL Ratio 6.17 mg/dL (1.0-5.00); Cholesterol 142 mg/dL (0-200); HDL Cholesterol 23 mg/dL (60-100); LDL Cholesterol Calculated 74 mg/dL (50-129); LDL HDL Ratio 3.22 RATIO (0.00-3.22); Thyroid Stimulating Hormone 1.73 uIU/mL (0.27-4.20); Triglycerides 224 mg/dL (0-150)
[2024-09-30 19:41] LABS: Troponin 5 6HR 6.87 ng/L (0-15); Troponin 5 6HR Delta -3.13 ng/L (0-12)
[2024-09-30] MEDS: enoxaparin 40 mg/0.4 mL Syringe SUBCUT (20:07)
[2024-09-30] MEDS: pantoprazole 40 mg SDV IVP (20:08)
[2024-09-30 20:29] LABS: Estmated Average Glucose 114; Hemoglobin A1C 5.6 % (4.0-6.0)
[2024-09-30] MEDS: budesonide 0.5 mg/2 mL Neb INHALATION (22:10)
[2024-10-01] VITALS (13 sets, daily range): BP systolic 110–161; BP diastolic 50–78; PULSE 63–89; RESP 16–20; TEMP 36.4–36.8; O2SAT 92–94; BMI 34.7
[2024-10-01 05:45] LABS: Alanine Aminotransferase 23 U/L (0-41); Albumin Level 3.4 g/dL (3.5-5.2); Alkaline Phosphatase 92 U/L (40-130); Blood Urea Nitrogen 24 mg/dL (8-23); Calcium 8.7 mg/dL (8.5-10.5); Carbon Dioxide 23 mmol/L (22-29); Chloride 103 mmol/L (98-107); Creatinine Clr Calc Pharmacy 102.3841; Globulin 3.6 g/dL (1.3-4.6); Glomerular Filtration Rate 85.5 mL/min (90-130); Glucose 169 mg/dL (65-115); Osmolality Calculated 296 mOsm/kg (285-295); Sodium 139 mmol/L (136-145); Total Bilirubin 0.2 mg/dL (0.15-1.2)
[2024-10-01 05:47] LABS: Aspartate Amino Transferase 16 U/L (0-40)
[2024-10-01 07:28] LABS: Basophils % 0.1 %; Eosinophils % 0.2 %; Lymphocytes # 1.3 10^3/uL (0.8-4.8); Lymphocytes % 12.4 %; Mean Corpuscular HGB Conc 33.1 g/dL (30-55); Mean Corpuscular Hemoglobin 29.7 pg (27-33); Mean Corpuscular Volume 89.7 fl (82-101); Mean Platelet Volume 9.8 fL (7.4-10.4); Monocytes # 0.3 10^3/uL (0.2-0.9); Monocytes % 2.6 %; Neutrophils # 9.08 10^3/uL (1.8-7.7); Neutrophils % 84.2 %; Nucleated Red Blood Cells % 0 %; Platelet Count 226 10^3/cmm (157-399); Red Blood Count 5.46 10^6/uL (3.85-5.65); Red Cell Distribution Width 13.5 % (12.1-15.1); White Blood Count 10.78 10^3/uL (3.29-11.43)
[2024-10-01] MEDS: tamsulosin 0.4 mg Capsule PO (08:24)
[2024-10-01] MEDS: amlodipine 10 mg Tablet PO (08:24)
[2024-10-01] MEDS: methylPREDNISolone sod succ 40 mg SDV IVP ×2 (08:24→14:27)
[2024-10-01] MEDS: metoprolol succinate ER (24 HR) 100 mg Tablet PO (08:25)
[2024-10-01] MEDS: ipratropium-albuterol 3 mL Neb INHALATION ×4 (08:46→20:18)
[2024-10-01] MEDS: budesonide 0.5 mg/2 mL Neb INHALATION ×2 (08:47→20:18)
--- NOTE | 2024-10-01 09:38 | PC.CHAP ---
Pastoral Care Encounter/Spiritual Assessment Type of Contact [] Declined permit agent visit [] Patient/Family/Request visit [] Outpatient visit [] Follow-up visit [] Physician referral [] Code/Alert [] Routine visit [] Staff referral [] Actively dying [] Patient sleeping [] Family support [] [] Out of room [] Palliative care [] [x] Receiving care in room [] Pre-surgical visit [] Trauma [] Long length of stay [] ICU visit [] Other: Relational/Emotional Strength [] Patient feels connected with others/family/visitors/staff [] Distress [] Loneliness/isolation [] Abandonment Spirituality of Patient [] Person of Sirena [] Attends Zoroastrian of their Sirena [] Believes in Prayer [] Reads Bible or Mormonism materials [] There are Spiritual issues to be addressed Broach Setter Interventions [] Prayer [] Active listening [] Non-anxious presence [] Spiritual/emotional support [] Crisis/trauma care [] Spiritual counseling [] Bereavement support [] Provided bereavement packet [] Provided Bible/devotional materials [] Provided toy/stuffed animal, coloring book to patient or family member [] Provided Communion [] Anointing/[place] [] Salvation [] Completed spiritual assessment [] Other: Impact on Illness or Injury [] Angry [] Fearful [] Anxious [] Often cries [] Exhaustion [] Unable to work [] Unable to attend denominational [] Unable to walk/stand [] Unable to read [] Unable to drive [] Unable to eat/drink [] Unable to sleep [] Unable to be with family [] Patient intubated [] Other: Summary Time spent with patient
[2024-10-01] MEDS: nicotine 21 mg Patch 1 PATCH TRANSDERMA (10:38)
[2024-10-01] MEDS: doxycycline 100 mg Tablet PO ×2 (10:38→16:36)
--- NOTE | 2024-10-01 15:35 | P.PN_ITS ---
Subjective 2 Subjective: patient was seen this morning continues to complain of wheezing, shortness of breath, cough Vitals/I&O/Wt Last Vital Signs Temp 98.0 F 10/01/24 11:41 Pulse 63 10/01/24 12:41 Resp 16 10/01/24 12:41 BP 110/50 10/01/24 11:41 Pulse Ox 92 10/01/24 12:41 O2 Del Method Nasal Cannula 10/01/24 12:41 O2 Flow Rate 3 10/01/24 12:41 10/01/24 10/01/24 10/01/24 06:59 14:59 22:59 Intake Total 600 / 960 960 / 960 Balance 600 / 960 960 / 960 Weight last 48 hrs Weight 106.594 kg Weight 106.594 kg Physical Exam 2 Const: COMMON NORMALS: no acute distress and patient oriented x3 Resp: COMMON NORMALS: normal respiratory effort, No retractions and No use of accessory muscles AUSCULTATION: crackles and wheezes Cardio: COMMON NORMALS: regular rate, regular rhythm, S1 normal heart sound present and S2 normal heart sound present RATE: regular rate RHYTHM: r egular rhythm HEART SOUNDS: S1 normal heart sound present and S2 normal heart sound present GI: COMMON NORMALS: Normal to inspection, nondistended, normoactive bowel sounds present and non-tender Extremity: COMMON NORMALS: no pedal edema Neuro: COMMON NORMALS: patient oriented x3 Psych: COMMON NORMALS: mental status grossly normal Data 10/01/24 07:15 10/01/24 04:51 A&P Assessment and plan (1) COPD (chronic obstructive pulmonary disease): (2) Acute exacerbation of chronic obstructive airways disease: Plan Acute COPD exacerbation -CT chest CT/CT chest wo con [id number] IMPRESSION: 1. Bilateral lower lung opacities most likely represents scarring and atelectasis. The findings are similar in distribution but more conspicuous than on 10/29/2023. 2. Mild centrilobular emphysema. 3. Stable right lung nodules measuring up to 8 mm since 10/29/2023. For patients at high risk (history of smoking or of other known risk factors including centrilobular emphysema), recommend CT Chest 1 year from now. (Reference: Susan) 4. Hepatic steatosis. -DuoNeb -Budesonide -Solu-Medrol 40 mg IV every 8 hours -Oxygen therapy -Full code -Lovenox DVT prophylaxis PDMP PDMP Reviewed: Not Reviewed Attestations 2 Medical Necessity Statement*: Patient requires hospitalization for acute COPD exacerbation Diagnoses COPD (chronic obstructive pulmonary disease) J44.9 Acute exacerbation of chronic obstructive airways disease J44.1
[2024-10-01] MEDS: enoxaparin 40 mg/0.4 mL Syringe SUBCUT (16:36)
[2024-10-01] MEDS: pantoprazole 40 mg SDV IVP (16:37)
[2024-10-02] VITALS (11 sets, daily range): BP systolic 127–150; BP diastolic 68–89; PULSE 55–77; RESP 14–24; TEMP 36.6–36.9; O2SAT 85–94
[2024-10-02] MEDS: methylPREDNISolone sod succ 40 mg SDV IVP ×2 (00:42→08:19)
[2024-10-02 04:40] LABS: Basophils % 0.1 %; Eosinophils % 0.1 %; Hematocrit 46.3 % (37-53); Lymphocytes # 1.1 10^3/uL (0.8-4.8); Lymphocytes % 7.5 %; Mean Corpuscular HGB Conc 33.7 g/dL (30-55); Mean Corpuscular Hemoglobin 30.4 pg (27-33); Mean Corpuscular Volume 90.1 fl (82-101); Mean Platelet Volume 9.8 fL (7.4-10.4); Monocytes # 0.5 10^3/uL (0.2-0.9); Monocytes % 3.4 %; Neutrophils # 12.71 10^3/uL (1.8-7.7); Neutrophils % 88.1 %; Nucleated Red Blood Cells % 0 %; Platelet Count 237 10^3/cmm (157-399); Red Blood Count 5.14 10^6/uL (3.85-5.65); Red Cell Distribution Width 13.5 % (12.1-15.1); White Blood Count 14.44 10^3/uL (3.29-11.43)
[2024-10-02 04:59] LABS: Alanine Aminotransferase 22 U/L (0-41); Albumin Level 3.7 g/dL (3.5-5.2); Alkaline Phosphatase 102 U/L (40-130); Anion Gap 16.3 (5-19); Aspartate Amino Transferase 11 U/L (0-40); Blood Urea Nitrogen 29 mg/dL (8-23); Calcium 8.4 mg/dL (8.5-10.5); Carbon Dioxide 28 mmol/L (22-29); Chloride 100 mmol/L (98-107); Globulin 3.2 g/dL (1.3-4.6); Glomerular Filtration Rate 85.5 mL/min (90-130); Glucose 304 mg/dL (65-115); Osmolality Calculated 307 mOsm/kg (285-295); Potassium 4.3 mmol/L (3.5-5.1); Sodium 140 mmol/L (136-145); Total Bilirubin 0.2 mg/dL (0.15-1.2); Total Protein 6.9 g/dL (6.6-8.7)
[2024-10-02] MEDS: ipratropium-albuterol 3 mL Neb INHALATION ×4 (08:05→20:54)
[2024-10-02] MEDS: budesonide 0.5 mg/2 mL Neb INHALATION ×2 (08:05→20:54)
[2024-10-02] MEDS: amlodipine 10 mg Tablet PO (08:19)
[2024-10-02] MEDS: tamsulosin 0.4 mg Capsule PO (08:19)
[2024-10-02] MEDS: metoprolol succinate ER (24 HR) 100 mg Tablet PO (08:19)
[2024-10-02] MEDS: doxycycline 100 mg Tablet PO ×2 (08:19→18:11)
[2024-10-02 11:55] LABS: Glucose Point of Care 267 mg/dL (70-110)
[2024-10-02] MEDS: insulin lispro 100 unit/1 mL SUBCUT ×2 (11:57→18:11)
[2024-10-02 15:05] LABS: NT Pro B Type Natriuretic Pept 556 pg/mL (0-125)
--- NOTE | 2024-10-02 16:09 | USCV_ITS ---
Jerrod Riley Age: 64 Gender: M : 1960 Exam Date: 10/02/2024 20:00 Ordering Phys: Андрей Hamilton MD Technologist: PARIS Exam Location: [facility] [place] Indication: shortness of breath, long-term smoker, continues smoking. HL BP: 133 / 72 HR: 67 Rhythm: Sinus Technical Quality: Adequate MEASUREMENTS (Male / Female) Normal Values 2D ECHO LV Diastolic Diameter PLAX 4.5 cm 4.2 - 5.9 / 3.9 - 5.3 cm IVS Diastolic Thickness 1.4 cm 0.6 - 1.0 / 0.6 - 0.9 cm IVS Systolic Thickness 2.4 cm LVPW Diastolic Thickness 1.1 cm 0.6 - 1.0 / 0.6 - 0.9 cm LVPW Systolic Thickness 1.1 cm LVOT Diameter 1.7 cm LV Ejection Fraction 2D Teich 64.3 % LV Ejection Fraction MOD 4C 65.0 % LV Ejection Fraction MOD 2C 56.3 % LV Ejection Fraction 2C AL 56.5 % LA Diameter 2.7 cm Aorta at Sinotubular Diameter 2.6 cm IVC Diameter 1.3 cm M-MODE LA Ao Ratio MM 1.3 AV Cusp Separation MM 1.6 cm DOPPLER AV Peak Velocity 121.0 cm/s LVOT Peak Velocity 125.0 cm/s AV Area Cont Eq vti 2.8 cm squared AV Area Cont Eq pk 2.3 cm squared MV Peak Velocity 105.0 cm/s MV Area PHT 3.0 cm squared Mitral E to A Ratio 1.1 TV Peak E Velocity 43.0 cm/s PV Peak Velocity 96.0 cm/s FINDINGS Left Ventricle Mild concentric left ventricle hypertrophy. Normal left ventricle systolic function with no regional wall motion abnormalities. Estimated LVEF 65%. Grade 1 diastolic dysfunction. Right Ventricle Normal right ventricular size and systolic function. Right Atrium Normal right atrial size. Left Atrium Normal left atrial size. Mitral Valve Structurally normal mitral valve. No mitral valve regurgitation. Aortic Valve Structurally normal trileaflet aortic valve. No aortic valve stenosis. Tricuspid Valve Structurally normal tricuspid valve. No tricuspid valve regurgitation. RV and pulmonary pressure appeared to be normal. Pulmonic Valve Structurally normal pulmonic valve. Trace pulmonary valve regurgitation. Pericardium No pericardial effusion. Aorta Normal size aortic root and proximal ascending aorta. IVC Normal inferior vena cava. CONCLUSIONS 1. Mild concentric LVH. Estimated LVEF normal 65%. 2. Normal RV size and RV systolic function. 3. No significant valvular abnormality noted. 4. Normal right heart and pulmonary pressures. Anurag Townsend MD (Electronically Signed) Final Date: 03 October 2024 15:17 S
--- NOTE | 2024-10-02 16:10 | P.PN_ITS ---
Subjective 2 Subjective: Patient was seen this morning, does complain of a cough, shortness of breath, discussed ambulation, up with ambulation his oxygen requirements have increased to 6 L, no fevers overnight, blood sugars have been elevated, discussed the need for insulin although A1c is 5.6 Vitals/I&O/Wt Last Vital Signs Temp 98.5 F 10/02/24 11:45 Pulse 69 10/02/24 15:51 Resp 20 H 10/02/24 15:51 BP 142/78 10/02/24 11:45 Pulse Ox 90 10/02/24 15:51 O2 Del Method Nasal Cannula 10/02/24 15:51 O2 Flow Rate 3 10/02/24 15:51 10/02/24 10/02/24 10/02/24 06:59 14:59 22:59 Intake Total 480 / 2520 360 / 360 Balance 480 / 2520 360 / 360 Weight last 48 hrs Weight 106.685 kg Weight 106.594 kg Physical Exam 2 Const: COMMON NORMALS: no acute distress and patient oriented x3 Resp: COMMON NORMALS: normal respiratory effort, No retractions, No use of accessory muscles and clear to auscultation bilaterally AUSCULTATION: clear to auscultation bilaterally Cardio: COMMON NORMALS: regular rate, regular rhythm, S1 normal heart sound present and S2 normal heart sound present RATE: regular rate RHYTHM: r egular rhythm HEART SOUNDS: S1 normal heart sound present and S2 normal heart sound present GI: COMMON NORMALS: Normal to inspection, nondistended, normoactive bowel sounds present and non-tender Extremity: COMMON NORMALS: no pedal edema Neuro: COMMON NORMALS: patient oriented x3 Psych: COMMON NORMALS: mental status grossly normal Data 10/02/24 04:26 10/02/24 04:26 A&P Assessment and plan (1) COPD (chronic obstructive pulmonary disease): (2) Acute exacerbation of chronic obstructive airways disease: Plan Acute COPD exacerbation -CT chest CT/CT chest wo con [id number] IMPRESSION: 1. Bilateral lower lung opacities most likely represents scarring and atelectasis. The findings are similar in distribution but more conspicuous than on 10/29/2023. 2. Mild centrilobular emphysema. 3. Stable right lung nodules measuring up to 8 mm since 10/29/2023. For patients at high risk (history of smoking or of other known risk factors including centrilobular emphysema), recommend CT Chest 1 year from now. (Reference: Susan) 4. Hepatic steatosis. -DuoNeb -Budesonide -De-escalate to prednisone 40 mg daily -Doxycycline -1 dose IV Lasix -Low-dose sliding scale -Oxygen therapy -Full code -Lovenox DVT prophylaxis PDMP PDMP Reviewed: Not Reviewed Attestations 2 Medical Necessity Statement*: Patient requires hospitalization for COPD exacerbation Diagnoses COPD (chronic obstructive pulmonary disease) J44.9 Acute exacerbation of chronic obstructive airways disease J44.1
[2024-10-02 16:27] LABS: Glucose Point of Care 201 mg/dL (70-110)
[2024-10-02] MEDS: FUROsemide 10 mg/mL SDV 4mL 40 MG IVP (18:11)
[2024-10-02] MEDS: pantoprazole 40 mg SDV IVP (18:11)
[2024-10-02] MEDS: enoxaparin 40 mg/0.4 mL Syringe SUBCUT (18:12)
[2024-10-02 21:00] LABS: Glucose Point of Care 213 mg/dL (70-110)
[2024-10-03] VITALS (10 sets, daily range): BP systolic 110–147; BP diastolic 63–80; PULSE 62–72; RESP 16–18; TEMP 36.7–36.8; O2SAT 86–94; BMI 35.4
[2024-10-03 06:00] LABS: Basophils % 0.1 %; Eosinophils % 0.1 %; Hematocrit 45.6 % (37-53); Lymphocytes # 1.8 10^3/uL (0.8-4.8); Lymphocytes % 14.6 %; Mean Corpuscular Volume 93.8 fl (82-101); Mean Platelet Volume 9.9 fL (7.4-10.4); Monocytes # 0.8 10^3/uL (0.2-0.9); Monocytes % 6.7 %; Neutrophils # 9.59 10^3/uL (1.8-7.7); Neutrophils % 77.9 %; Nucleated Red Blood Cells % 0.2 %; Platelet Count 211 10^3/cmm (157-399); Red Blood Count 4.86 10^6/uL (3.85-5.65); Red Cell Distribution Width 13.9 % (12.1-15.1); White Blood Count 12.31 10^3/uL (3.29-11.43)
[2024-10-03 06:22] LABS: Alanine Aminotransferase 32 U/L (0-41); Albumin Level 3.5 g/dL (3.5-5.2); Alkaline Phosphatase 76 U/L (40-130); Anion Gap 13.9 (5-19); Aspartate Amino Transferase 17 U/L (0-40); Blood Urea Nitrogen 24 mg/dL (8-23); Calcium 8.4 mg/dL (8.5-10.5); Carbon Dioxide 31 mmol/L (22-29); Chloride 99 mmol/L (98-107); Creatinine Clr Calc Pharmacy 116.5028; Globulin 2.9 g/dL (1.3-4.6); Glucose 131 mg/dL (65-115); Osmolality Calculated 296 mOsm/kg (285-295); Potassium 3.9 mmol/L (3.5-5.1); Sodium 140 mmol/L (136-145); Total Bilirubin 0.2 mg/dL (0.15-1.2); Total Protein 6.4 g/dL (6.6-8.7)
[2024-10-03 06:32] LABS: Glucose Point of Care 127 mg/dL (70-110)
[2024-10-03] MEDS: amlodipine 10 mg Tablet PO (08:00)
[2024-10-03] MEDS: tamsulosin 0.4 mg Capsule PO (08:00)
[2024-10-03] MEDS: doxycycline 100 mg Tablet PO (08:00)
[2024-10-03] MEDS: metoprolol succinate ER (24 HR) 100 mg Tablet PO (08:01)
[2024-10-03] MEDS: predniSONE 20 mg Tablet 40 MG PO (08:01)
[2024-10-03] MEDS: ipratropium-albuterol 3 mL Neb INHALATION ×2 (08:42→11:15)
[2024-10-03] MEDS: budesonide 0.5 mg/2 mL Neb INHALATION (08:42)
[2024-10-03 10:57] LABS: Glucose Point of Care 275 mg/dL (70-110)
[2024-10-03] MEDS: insulin lispro 100 unit/1 mL SUBCUT (11:39)
[2024-10-03] MEDS: FUROsemide 10 mg/mL SDV 4mL 40 MG IVP (11:39)
--- NOTE | 2024-10-03 11:44 | PM.DCS ---
Discharge Providers Date of Admission: 09/30/24 17:04 Date of Discharge: October 03, 2024 Attending Provider at Admission: Андрей Hamilton MD Attending Provider at Discharge: Андрей Hamilton MD Primary Care Provider: ELIJAH Blanco Diagnoses at Discharge Discharge Diagnosis (1) COPD (chronic obstructive pulmonary disease): Status: Acute (2) Acute exacerbation of chronic obstructive airways disease: Status: Acute Reason for Visit Reason for Visit: SOB Hospital Course Hospital Course Jerrod Riley is a 64 year old male with a past medical history of smoking, hyperlipidemia, hypertension who presents [facility] for complaints of shortness of breath, cough. Patient tells me that he purchased a home oxygen concentrator from an auction, and that supplies his oxygen as he was getting oxygen from home supply company home however the cost was high, so now he gets his home oxygen from an oxygen concentrator, he tells me that recently has been experiencing increased shortness of breath, increased shortness of breath with exertion with a cough no fevers, chills, no chest pain, no lower extremity edema no orthopnea, no paroxysmal nocturnal dyspnea Patient was admitted to [facility] for COPD exacerbation, received steroid therapy, antibiotic therapy, oxygen therapy, overall clinically improved. Patient will be discharged on steroid burst, doxycycline, oxygen 2 L at rest 4 L with exertion. In addition discharged with albuterol, Advair with close follow-up with pulmonary CT scan findings, right lung nodules, will have patient follow-up with pulmonary for surveillance Patient did have elevated blood sugars during his hospitalization likely secondary to steroids, A1c was 5.6, will have him follow-up with primary care, follow-up with endocrinology Physical Exam Const: COMMON NORMALS: no acute distress and patient oriented x3 Resp: COMMON NORMALS: normal respiratory effort, No retractions, No use of accessory muscles and clear to auscultation bilaterally AUSCULTATION: clear to auscultation bilaterally Cardio: COMMON NORMALS: regular rate, regular rhythm, S1 normal heart sound present and S2 normal heart sound present RATE: regular rate RHYTHM: regular rhythm HEART SOUNDS: S1 normal heart sound present and S2 normal heart sound present GI: COMMON NORMALS: Normal to inspection, nondistended, normoactive bowel sounds present and non-tender Extremity: COMMON NORMALS: no pedal edema Neuro: COMMON NORMALS: patient oriented x3 Psych: COMMON NORMALS: mental status grossly normal Discharge Data Studies Completed and Pending Completed Studies During Hospitalization Category Date Time Status CT chest wo con [id number] Stat Cat Scan 09/30/24 16:47 Completed XR chest 1V portable [id number] Stat Exams 09/30/24 12:25 Completed Pending at discharge Category Date Time Status CV. echo complete* [id number] Routine Ultrasound 10/02/24 16:09 Taken Radiology Impressions Chest X-Ray 09/30/24 12:25 IMPRESSION: Probable scarring/atelectasis in the left lung base. Chest CT 09/30/24 16:47 IMPRESSION: 1. Bilateral lower lung opacities most likely represents scarring and atelectasis. The findings are similar in distribution but more conspicuous than on 10/29/2023. 2. Mild centrilobular emphysema. 3. Stable right lung nodules measuring up to 8 mm since 10/29/2023. For patients at high risk (history of smoking or of other known risk factors including centrilobular emphysema), recommend CT Chest 1 year from now. (Reference: Susan) 4. Hepatic steatosis. COMMENTS: The presence of pulmonary emphysema on CT is an independent risk factor for lung cancer. In the absence of a history or active diagnosis of lung cancer, it is recommended that this patient with emphysema be evaluated for enrollment in a low dose CT lung cancer screening program. REFERENCES: Susan Alva, et al. Guidelines for Management of Incidental Pulmonary Nodules Detected on CT Images: From the Fleischner Society 2017. Radiology. 2017;284(1):228-243. Laboratory Results WBC 12.31 10^3/uL (3.29-11.43) H 10/03/24 05:48 Corrected WBC Cancelled 10/01/24 04:51 RBC 4.86 10^6/uL (3.85-5.65) 10/03/24 05:48 Hgb 14.60 g/dL (11.27-16.99) 10/03/24 05:48 Hct 45.6 % (37-53) 10/03/24 05:48 MCV 93.8 fl (82-101) 10/03/24 05:48 MCH 30.0 pg (27-33) 10/03/24 05:48 MCHC 32.0 g/dL (30-55) D 10/03/24 05:48 RDW 13.9 % (12.1-15.1) 10/03/24 05:48 Plt Count 211 10^3/cmm (157-399) 10/03/24 05:48 MPV 9.9 fL (7.4-10.4) 10/03/24 05:48 Gran % Cancelled 10/01/24 04:51 Neut % (Auto) 77.9 % 10/03/24 05:48 Lymph % (Auto) 14.6 % 10/03/24 05:48 Walton % (Auto) 6.7 % 10/03/24 05:48 Eos % (Auto) 0.1 % 10/03/24 05:48 Baso % (Auto) 0.1 % 10/03/24 05:48 Neut # (Auto) 9.59 10^3/uL (1.8-7.7) H 10/03/24 05:48 Lymph # (Auto) 1.8 10^3/uL (0.8-4.8) 10/03/24 05:48 Walton # (Auto) 0.8 10^3/uL (0.2-0.9) 10/03/24 05:48 Eos # (Auto) 0.0 10^3/uL (0.0-0.8) 10/03/24 05:48 Baso # (Auto) 0.0 10^3/uL (0.0-0.1) 10/03/24 05:48 Absolute Gran (auto) Cancelled 10/01/24 04:51 Nucleated RBC % (auto) 0.2 % 10/03/24 05:48 Nucleated RBCs # 0.0 /100WBC 10/03/24 05:48 Specimen Type Arterial 09/30/24 12:50 Sample Site Radial, left 09/30/24 12:50 ABG pH 7.35 (7.35-7.45) 09/30/24 12:50 ABG pCO2 60.8 mmHg (35-45) H* 09/30/24 12:50 ABG pO2 71.6 mmHg (80.0-100.0) L 09/30/24 12:50 ABG HCO3 33.4 mmol/L (22-26) H 09/30/24 12:50 ABG O2 Saturation 94.6 09/30/24 12:50 ABG Base Excess 5.4 mmol/L (-2.0-2.0) H 09/30/24 12:50 Silverio Test Pos 09/30/24 12:50 A-a O2 Gradient 0.5 mmHg (5-10) L 09/30/24 12:50 Hematocrit 50.1 % (42-52) 09/30/24 12:50 Hgb O2 Saturation 91.0 % (95-100) L 09/30/24 12:50 Carboxyhemoglobin 2.9 %THgb (0.4-20.1) 09/30/24 12:50 Methemoglobin 0.9 % (0.4-1.5) 09/30/24 12:50 Total Hemoglobin 16.3 g/dL (14-18) 09/30/24 12:50 Sodium 142.0 mmol/L (131-143) 09/30/24 12:50 Potassium 4.1 mmol/L (3.5-5.0) 09/30/24 12:50 Glucose 103.0 mg/dL (70-115) 09/30/24 12:50 Ionized Calcium 1.2 mmol/L (1.1-1.4) 09/30/24 12:50 O2 Delivery Device Nc 09/30/24 12:50 O2 Liters/Min 2.0 % 09/30/24 12:50 Complaint Operator ID Walci 09/30/24 12:50 Sodium 140 mmol/L (136-145) 10/03/24 05:48 Potassium 3.9 mmol/L (3.5-5.1) 10/03/24 05:48 Chloride 99 mmol/L (98-107) 10/03/24 05:48 Carbon Dioxide 31 mmol/L (22-29) H 10/03/24 05:48 Anion Gap 13.9 (5-19) 10/03/24 05:48 BUN 24 mg/dL (8-23) H 10/03/24 05:48 Creatinine 0.8 mg/dL (0.7-1.2) 10/03/24 05:48 GFR Calculation 98.0 mL/min (90-130) 10/03/24 05:48 Glucose 131 mg/dL (65-115) H 10/03/24 05:48 POC Glucose 275 mg/dL (70-110) H 10/03/24 10:52 Estimat Average Glucose 114 09/30/24 12:45 Hemoglobin A1c 5.6 % (4.0-6.0) 09/30/24 12:45 Calculated Osmolality 296 mOsm/kg (285-295) H 10/03/24 05:48 Calcium 8.4 mg/dL (8.5-10.5) L 10/03/24 05:48 Total Bilirubin 0.2 mg/dL (0.15-1.2) 10/03/24 05:48 AST 17 U/L (0-40) 10/03/24 05:48 ALT 32 U/L (0-41) 10/03/24 05:48 Alkaline Phosphatase 76 U/L (40-130) 10/03/24 05:48 Troponin T Baseline 10 ng/L (0-15) 09/30/24 12:45 Troponin T 120 Minute 8.26 ng/L (0-15) 09/30/24 15:57 Delta Troponin T -1.74 ABS# (0-10) L 09/30/24 15:57 Troponin T Hi Sens 6Hr 6.87 ng/L (0-15) 09/30/24 19:07 Troponin T Hi Sens 6Hr Delta -3.13 ng/L (0-12) L 09/30/24 19:07 C-Reactive Protein 7.7 mg/L (0.0-4.9) H 09/30/24 15:57 NT-Pro-B Natriuret Pep 556 pg/mL (0-125) H 10/02/24 14:23 Total Protein 6.4 g/dL (6.6-8.7) L 10/03/24 05:48 Albumin 3.5 g/dL (3.5-5.2) 10/03/24 05:48 Globulin 2.9 g/dL (1.3-4.6) 10/03/24 05:48 Triglycerides 224 mg/dL (0-150) H 09/30/24 12:45 Cholesterol 142 mg/dL (0-200) 09/30/24 12:45 LDL Cholesterol, Calc 74 mg/dL (50-129) 09/30/24 12:45 HDL Cholesterol 23 mg/dL (60-100) L 09/30/24 12:45 LDL/HDL Ratio 3.22 RATIO (0.00-3.22) 09/30/24 12:45 Cholesterol/HDL Ratio 6.17 mg/dL (1.0-5.00) H 09/30/24 12:45 Procalcitonin 0.07 ng/mL (0-0.5) 09/30/24 15:57 TSH 1.73 uIU/mL (0.27-4.20) 09/30/24 12:45 Influenza A (PCR) Negative (Negative) 09/30/24 12:28 Influenza Type B (PCR) Negative (Negative) 09/30/24 12:28 RSV (PCR) Negative (Negative) 09/30/24 12:28 SARS-CoV-2 (PCR) Negative (Negative) 09/30/24 12:28 Vitals Last Vital Signs Temp 98.1 F 10/03/24 08:30 Pulse 71 10/03/24 11:21 Resp 18 10/03/24 11:16 BP 136/63 10/03/24 08:30 Pulse Ox 93 10/03/24 11:16 O2 Del Method Nasal Cannula 10/03/24 11:16 O2 Flow Rate 3 10/03/24 11:16 Discharge Plan Discharge Patient Disposition: Home Condition: Stable Prescriptions: New prednisone 20 mg Tablet 40 mg PO DAILY 5 Days Qty: 10 0RF doxycycline monohydrate 100 mg Tablet 100 mg PO BID 5 Days Qty: 10 0RF albuterol sulfate [Ventolin HFA] 90 mcg/actuation HFA aerosol inhaler 1 inh inhalation Q6H PRN (Reason: shortness of breath or wheezing) Qty: 8.5 0RF fluticasone propion-salmeterol [Advair Diskus] 100-50 mcg/dose blister with device 1 inh inhalation BID Qty: 60 0RF Continued metoprolol succinate 100 mg tablet extended release 24 hr 100 mg PO DAILY tamsulosin 0.4 mg capsule 0.4 mg PO DAILY amlodipine 10 mg tablet 10 mg PO DAILY Discharge Orders: Discharge Order (Routine); Ordered 10/03/24 Ordered By: Андрей Hamilton Other Ambulatory Orders: DME: Nebulizer with Neb Kit (Order) Location: None Selected Ordered By: Blas Cade Referrals: Sarthak Palacio MD, MBBS, MPH [Referring] - 1 week Florina Calhoun FNP [Primary Care Provider] - 1-3 days Sharmaine Kuhn MD [Physician] - 2 weeks Discharge Diet: Cardiac Discharge Activity: Resume usual activity Patient Instructions: COPD (Chronic Obstructive Pulmonary Disease) (ED), Opioid Safety, Pain Management Activity Restrictions/Additional Instructions: - If you have any shortness of breath please come back to the emergency room -Please use oxygen therapy as prescribed -Please stop smoking -Your blood sugars are elevated, please follow-up with primary care provider as you are in the prediabetic range, -Follow-up with endocrinology Discharge Attestations Time Spent in Discharge Care*: greater than 30 min Quality Metrics Clinical Quality Measures [ No reported AMI, CVA or VTE this stay] Coding Level of Care Code 39807 Total time (in minutes) for Discharge: 45 Diagnoses COPD (chronic obstructive pulmonary disease) J44.9 Acute exacerbation of chronic obstructive airways disease J44.1
== END 2024-10-03 13:51 | disposition home or self-care (01) | DRG 192 ==
LOC: ER 16:07 → MEDSURG 17:08
PROVIDERS: Admitting Provider Family Medicine; Emergency Provider Family Medicine; PCP Nurse Practitioner Family; Visit Provider Family Medicine
DX: J44.1 Chronic obstructive pulmonary disease with (acute) exacerbation (principal); E78.5 Hyperlipidemia, unspecified; I10 Essential (primary) hypertension; R91.8 Other nonspecific abnormal finding of lung field; R73.9 Hyperglycemia, unspecified; T38.0X5A Adverse effect of glucocorticoids and synthetic analogues, initial encounter; Z99.81 Dependence on supplemental oxygen; Z79.899 Other long term (current) drug therapy; Z87.891 Personal history of nicotine dependence; Z11.52 Encounter for screening for COVID-19
CPT/HCPCS: 36415; 36416; 36600; 71045; 71250; 80051; 80053; 80061; 82330; 82805; 82962; 83036; 83880; 84145; 84443; 84484; 85025; 86140; 87637; 93005; 93306; 94640; 94664; 94760; 96372; 99285; J1100; J1650; J1815; J1940; J2470; J2919; J7512; J7626

== ENCOUNTER 2024-10-28 13:30 | Outpatient (CLI) | payer OTHER, SELFPAY ==
[2024-10-28 13:49] VITALS: PULSE 62; RESP 18; O2SAT 90
== END 2024-10-28 13:31 | disposition home or self-care (01) ==
LOC: RT 13:35
PROVIDERS: PCP Nurse Practitioner Family; Visit Provider Nurse Practitioner Family
DX: J44.9 Chronic obstructive pulmonary disease, unspecified (principal); M17.12 Unilateral primary osteoarthritis, left knee; M11.262 Other chondrocalcinosis, left knee; M76.892 Other specified enthesopathies of left lower limb, excluding foot; R93.6 Abnormal findings on diagnostic imaging of limbs
CPT/HCPCS: 73560; 73565; 94060; 94729